=== PATIENT | female | born 1950 | race Caucasian/White ===

== ENCOUNTER 2021-09-11 15:47 | Emergency (ER) | payer OTHER, MEDICARE ==
[~2021-09-11 15:47] MED LIST: ADVAIR 100-501 EACH INH; BACLOFEN 10MG T10 MG PO; BISOPROLOL FUMAR5 MG PO; BYSTOLIC10 MG PO; CALCIUM 600 +1 EACH PO; CLARITIN10 MG PO; DALIRESP500 MCG PO; ETODOLAC200 MG PO; EVISTA60 MG PO; FLEXERIL10 MG PO; HCTZ25 MG PO; HYDROCODONE-APA1 TAB PO; MEDROL 4MG DOSEP4 MG PO; METFORMIN HCL500 MG PO; MUCINEX 600MG600 MG PO; NEURONTIN300 MG PO; NITROGLYCERIN0.4 MG SL; NORVASC5 MG PO; POTASSIUM CHLO10 MEQ PO; PRAVACHOL20 MG PO; PROTONIX 40MG T40 MG PO; SINGULAIR10 MG PO; SPIRIVA18 MCG INH; VENTOLIN HFA IN18 GM INH; VITAMIN D-32000 UNIT PO; ZPAK PO
[2021-09-11 17:46] LABS: BASOPHIL 0.4 % (0-2); EOSINOPHIL 0.7 % (0-7); HCT 44.5 % (37.0-47.0); HGB 14.4 g/dl (12.5-16.0); LYMPHOCYTE 8.4 % (15-48); MCH 29.8 pg (25.0-31.0); MCHC 32.4 g/dL (32.0-36.0); MCV 92.1 fL (78.0-100.0); MONOCYTE 6.8 % (0-12); MPV 9.8 fL (6.0-9.5); NEUTROPHIL 83.3 % (41-80); NRBC 0; PLT 228 K/uL (150-400); RBC 4.83 M/uL (4.20-5.40); RDW 13.1 % (11.5-14.0)
[2021-09-11 17:59] LABS: ALBUMIN 3.4 g/dL (3.4-5.0); BILIRUBIN - TOTAL 0.3 mg/dL (0.2-1.0); BUN/CREAT RATIO (CALC) 19.4 RATIO; CREATININE 0.62 mg/dL (0.51-0.95); GLOBULIN (CALCULATION) 4.6 g/dL; POTASSIUM 3.8 mmol/L (3.5-5.1)
[2021-09-11 18:24] LABS: CORONAVIRUS 2019 SARS-COV-2 NEGATIVE (NEGATIVE); INFLUENZA A NAA NEGATIVE (NEGATIVE)
[2021-09-11] MEDS ORDERED: AZITHROMYCIN250 MG PO (19:49)
[2021-09-11] MEDS ORDERED: PREDNISONE 20MG20 MG PO (19:49)
[2021-09-11] MEDS ORDERED: AUGMENTIN 875-1 EACH PO (19:51)
== END 2021-09-11 20:05 | disposition home or self-care (01) ==
LOC: FER 15:47
PROVIDERS: Internal Medicine
DX: J44.0 Chronic obstructive pulmonary disease with (acute) lower respiratory infection (principal); J18.9 Pneumonia, unspecified organism; J44.1 Chronic obstructive pulmonary disease with (acute) exacerbation; I10 Essential (primary) hypertension; E11.9 Type 2 diabetes mellitus without complications; F17.210 Nicotine dependence, cigarettes, uncomplicated; Z88.2 Allergy status to sulfonamides; Z88.0 Allergy status to penicillin; Z20.822 Contact with and (suspected) exposure to COVID-19
CPT/HCPCS: 36415; 71045; 80053; 83605; 84145; 84484; 85025; 87040; 93005; J1100; J2543; U0002

== ENCOUNTER 2022-08-01 21:56 | Emergency (ER) | payer OTHER, MEDICARE ==
[~2022-08-01 21:56] MED LIST changes: +AUGMENTIN 875-1 EACH PO; +AZITHROMYCIN250 MG PO; +PREDNISONE 20MG20 MG PO
[2022-08-01 22:28] LABS: BASOPHIL 0.2 % (0-2); EOSINOPHIL 0.8 % (0-7); HCT 42.8 % (37.0-47.0); HGB 14.1 g/dl (12.5-16.0); MCH 30.1 pg (25.0-31.0); MCHC 32.9 g/dL (32.0-36.0); MCV 91.5 fL (78.0-100.0); MONOCYTE 8.1 % (0-12); MPV 9.7 fL (6.0-9.5); NEUTROPHIL 73.6 % (41-80); PLT 224 K/uL (150-400); RBC 4.68 M/uL (4.20-5.40); RDW 13.1 % (11.5-14.0); WBC 9.6 K/uL (4.0-10.5)
[2022-08-01 22:32] LABS: NRBC 0
[2022-08-01 22:51] LABS: ALBUMIN 3.2 g/dL (3.4-5.0); BILIRUBIN - TOTAL 0.3 mg/dL (0.2-1.0); BUN/CREAT RATIO (CALC) 23.6 RATIO; CREATININE 0.55 mg/dL (0.51-0.95); GLOBULIN (CALCULATION) 4.5 g/dL; POTASSIUM 3.1 mmol/L (3.5-5.1); TOTAL PROTEIN 7.7 g/dL (6.4-8.2)
[2022-08-01 23:05] LABS: CORONAVIRUS 2019 SARS-COV-2 NEGATIVE (NEGATIVE); INFLUENZA A NAA NEGATIVE (NEGATIVE)
[2022-08-02] MEDS ORDERED: MEDROL 4MG DOSEP4 MG PO (04:37)
[2022-08-02] MEDS ORDERED: LEVAQUIN500 MG PO (04:37)
[2022-08-02] MEDS ORDERED: DIFLUCAN 100MG100 MG PO (04:37)
== END 2022-08-02 05:15 | disposition home or self-care (01) ==
LOC: FER 21:56
PROVIDERS: Emergency Medicine
DX: J44.1 Chronic obstructive pulmonary disease with (acute) exacerbation (principal); E11.9 Type 2 diabetes mellitus without complications; F17.210 Nicotine dependence, cigarettes, uncomplicated; Z20.822 Contact with and (suspected) exposure to COVID-19; Z79.4 Long term (current) use of insulin
CPT/HCPCS: 36415; 36600; 71045; 71275; 80053; 82803; 83605; 83880; 84145; 84484; 85025; 85379; 87040; 93005; J0696; J2930; Q0162; U0002